=== PATIENT | female | born 1980 | race Caucasian/White ===

== ENCOUNTER 2021-08-07 12:36 | Emergency (ER) | payer OTHER ==
[~2021-08-07 12:36] MED LIST: VIBRAMYCIN100 MG PO
[2021-08-07 16:17] LABS: HEMOGLOBIN 9.5 gm/dl (12.3-15.3)
[2021-08-07 16:37] LABS: BUN/CREATININE RATIO 9 (0-10)
== END 2021-08-07 19:00 | disposition home or self-care (01) ==
LOC: ER1 12:36
PROVIDERS: Emergency Medicine
DX: Z23 Encounter for immunization (principal); U07.1 COVID-19; D64.9 Anemia, unspecified
CPT/HCPCS: 71045; 80053; 82550; 82553; 83874; 84484; 84702; 85025; 85379; 99284; J7030; M0243; U0002

== ENCOUNTER → 2021-09-19 | Outpatient (CLI) | payer OTHER | LOC: US 07:59 | DX: E04.2 Nontoxic multinodular goiter (principal); R09.89 Other specified symptoms and signs involving the circulatory and respiratory systems | CPT/HCPCS: 76536; 93979 ==